=== PATIENT | male | born 1995 | race Two or more races ===

== ENCOUNTER 2019-06-25 05:16 | Emergency (ER) | payer OTHER ==
[~2019-06-25] VITALS: Ht 175.3 cm; Wt 120.7 kg
== END 2019-06-25 08:59 | disposition home or self-care (01) ==
LOC: ER 05:16
DX: R10.32 Left lower quadrant pain (principal)

== ENCOUNTER 2021-07-11 20:48 | Emergency (ER) | payer OTHER ==
[~2021-07-11] VITALS: Ht 175.3 cm; Wt 126.1 kg
== END 2021-07-12 00:01 | disposition home or self-care (01) ==
LOC: ER 20:48
DX: M77.8 Other enthesopathies, not elsewhere classified (principal)

== ENCOUNTER 2023-05-19 21:14 | Emergency (ER) | payer OTHER ==
[~2023-05-19] VITALS: Ht 175.3 cm; Wt 138.8 kg
== END 2023-05-19 23:01 | disposition home or self-care (01) ==
LOC: ER 21:14
DX: J06.9 Acute upper respiratory infection, unspecified (principal); K11.20 Sialoadenitis, unspecified; R53.81 Other malaise